=== PATIENT | female | born 1965 | race Caucasian/White ===

== ENCOUNTER → 2018-09-05 | Outpatient (CLI) | payer BC, OTHER ==
[~2018-09-05] MED LIST: AUGMENTIN 875875 MG PO; COLACE 100 MG100 MG PO; HYDROCODONE-AP1 EAC6 PO; TRAMADOL 50 MG50 MG PO; TYLENOL325 MG PO
--- NOTE | ~2018-09-05 | EKG ---
[address] [address] ELECTROCARDIOGRAM REPORT Name: JING AMBROSIO Room #: [facility] Jen#: [id number] Admission: 09/05/18 Attend Phys: Kaylie Charlton MD Discharge: Date of : 63 Report #: [id number] THIS REPORT FOR: //name// [facility] Test Date: 2018-09-05 Test Time: 17:12:01 Pat Name: JING AMBROSIO Department: Room: Gender: F Melt Room Operator: Daja GARCIA : 1965 Requested By: Kaylie Charlton Order Number: [id number] MD: Jean Pierre Montanez Measurements Intervals [place] Rate: 75 P: 43 TX: 142 QRS: 34 QRSD: 77 T: 52 QT: 408 QTc: 456 Interpretive Statements Sinus rhythm Normal tracing Compared to ECG 04/08/2015 12:08:48 Sinus tachycardia no longer present T-wave abnormality no longer present Electronically Signed On 09-06-2018 7:58:53 [employer] by Jean Pierre Montanez [email or web address] <ELECTRONICALLY SIGNED> By: Jean Pierre Montanez MD, [facility] 09/06/18 0758 D: [id number] Jean Pierre Montanez MD, FAC /EPI
== END ==
LOC: CV 16:44
DX: Z01.818 Encounter for other preprocedural examination (principal); I10 Essential (primary) hypertension; E11.9 Type 2 diabetes mellitus without complications